=== PATIENT | male | born 1940 | race Caucasian/White ===

== ENCOUNTER 2023-07-15 14:03 | Outpatient (RCR) | payer MEDICARE, OTHER, SELFPAY | END 2023-07-16 09:40 | disposition home or self-care (01) | LOC: RPT 14:03 | PROVIDERS: ATTENDING PHYSICIAN Specialist; PRIMARYCARE PHYSICIAN Internal Medicine | DX: R39.15 Urgency of urination (principal); N39.41 Urge incontinence; Z73.6 Limitation of activities due to disability; R27.8 Other lack of coordination; M62.81 Muscle weakness (generalized) | CPT/HCPCS: 97530 ==

== ENCOUNTER → 2023-09-04 07:25 | Outpatient (REF) | payer MEDICARE, OTHER, SELFPAY ==
[2023-09-04 08:04] LABS: % Basophils 0.5 % (0-2); % Eosinophils 3.2 % (0-6); % Immature Granulocytes 0.2 % (0-0.5); % Lymphocytes 29.8 % (20.5-51.1); % Monocytes 15.5 % (1.7-9.3); % Neutrophils 50.8 % (42.2-75.2); Absolute Eosinophils 0.2 10^3/uL (0-0.7); Absolute Lymphocytes 1.7 10^3/uL (1.2-3.4); Absolute Monocytes 0.9 10^3/uL (0.1-0.6); Absolute Neutrophils 2.8 10^3/uL (1.4-6.5); Hematocrit 43.2 % (39.0-52.0); Hemoglobin 14.2 g/dL (13.0-18.0); Mean Corp Hgb Conc. 32.9 g/dL (33.0-37.0); Mean Corpuscular Hgb 29.2 pg (27.0-31.0); Mean Corpuscular Volume 88.9 fL (80.0-94.0); Mean Platelet Volume 9.6 fL (7.4-10.4); Nucleated Red Blood Cells % 0 % (-); Platelet Count 174 10^3/uL (130-400); Red Blood Cell Count 4.86 10^6/uL (4.70-6.10); Red Cell Dist. Width 12.8 % (11.5-14.5); White Blood Cell Count 5.6 10^3/uL (4.8-10.8)
[2023-09-04 08:36] LABS: ALT (SGPT) 34 U/L (0-50); AST (SGOT) 42 U/L (17-59); Alkaline Phosphatase 69 U/L (38-126); Blood Urea Nitrogen 19 mg/dl (9-20); Calcium 8.7 mg/dl (8.4-10.2); Carbon Dioxide 31 mmol/L (22-30); Chloride 106 mmol/L (98-107); Glucose 106 mg/dl (70-99); Potassium 4.2 mmol/L (3.5-5.1); Sodium 139 mmol/L (135-145); Total Bilirubin 0.5 mg/dl (0.2-1.3); Total Protein 6.9 g/dl (6.3-8.2); eGFR > 60.00
[2023-09-04 08:52] LABS: Erythrocyte Sed Rate 9 mm/hour (0-20)
[2023-09-05 23:56] LABS: Gliadin Peptide (DGP) Ab, IgG <0.56 FLU (0.00-4.99)
[2023-09-07 02:03] LABS: Myeloperoxidase Antibody 0 AU/mL (0-19)
== END ==
LOC: REG 07:25
PROVIDERS: ATTENDING PHYSICIAN Hospitalist; FAMILY PHYSICIAN Internal Medicine
DX: H90.42 Sensorineural hearing loss, unilateral, left ear, with unrestricted hearing on the contralateral side (principal); I10 Essential (primary) hypertension; K90.0 Celiac disease
CPT/HCPCS: 36415; 80053; 83516; 85025; 85652; 86140; 86258

== ENCOUNTER → 2023-09-08 10:01 | Outpatient (REF) | payer MEDICARE, OTHER, SELFPAY | LOC: REG 10:01 | PROVIDERS: ATTENDING PHYSICIAN Hospitalist; FAMILY PHYSICIAN Internal Medicine | DX: H90.42 Sensorineural hearing loss, unilateral, left ear, with unrestricted hearing on the contralateral side (principal); I10 Essential (primary) hypertension; K90.0 Celiac disease | CPT/HCPCS: 81050 ==

== ENCOUNTER → 2023-11-12 20:09 | Outpatient (REF) | payer MEDICARE, OTHER, SELFPAY | LOC: MRI 20:09 | PROVIDERS: ATTENDING PHYSICIAN Otolaryngology; FAMILY PHYSICIAN Internal Medicine | DX: H90.3 Sensorineural hearing loss, bilateral (principal) | CPT/HCPCS: 70553; A9575 ==

== ENCOUNTER → 2024-04-07 16:33 | Outpatient (REF) | payer MEDICARE, OTHER, SELFPAY | LOC: PAVMRI 16:33 | PROVIDERS: ATTENDING PHYSICIAN Specialist; FAMILY PHYSICIAN Internal Medicine | DX: M25.552 Pain in left hip (principal); M54.16 Radiculopathy, lumbar region | CPT/HCPCS: 72148; 73721 ==

== ENCOUNTER → 2024-05-13 08:51 | Outpatient (REF) | payer MEDICARE, OTHER, SELFPAY ==
[2024-05-13 11:33] LABS: ALT (SGPT) 29 U/L (0-50); AST (SGOT) 38 U/L (17-59); Albumin 4.3 g/dl (3.5-5.0); Alkaline Phosphatase 63 U/L (38-126); Blood Urea Nitrogen 26 mg/dl (9-20); Calcium 9.2 mg/dl (8.4-10.2); Carbon Dioxide 27 mmol/L (22-30); Chloride 104 mmol/L (98-107); Glucose 96 mg/dl (70-99); HDL Cholesterol 64 mg/dl; LDL Cholesterol, Calculated 123 mg/dl; Potassium 5.1 mmol/L (3.5-5.1); Sodium 144 mmol/L (135-145); Total Bilirubin 0.7 mg/dl (0.2-1.3); Total Cholesterol 199 mg/dl (50-199); Total Protein 7.2 g/dl (6.3-8.2); Triglyceride 63 mg/dl (10-149); Very Low Density Lipoprotein 12 mg/dl (0-30); eGFR > 60.00
[2024-05-13 12:02] LABS: PSA, Total - Screen 1.92 ng/ml (0.0-4.0)
[2024-05-13 13:05] LABS: Glycohemoglobin (HgbA1c) 5.5 % (4.0-5.6)
== END ==
LOC: REG 08:51
PROVIDERS: ATTENDING PHYSICIAN Internal Medicine
DX: E78.00 Pure hypercholesterolemia, unspecified (principal); R73.9 Hyperglycemia, unspecified; Z12.5 Encounter for screening for malignant neoplasm of prostate
CPT/HCPCS: 36415; 80053; 80061; 83036; G0103

== ENCOUNTER 2024-08-27 10:49 | Emergency (ER) | payer MEDICARE, OTHER, SELFPAY ==
[2024-08-27] VITALS (10 sets, daily range): BP systolic 116–136; BP diastolic 64–84; PULSE 45–51; BMI 21.2
[2024-08-27 11:16] LABS: % Basophils 0.4 % (0-2); % Eosinophils 0.4 % (0-6); % Immature Granulocytes 0.2 % (0-0.5); % Lymphocytes 28.9 % (20.5-51.1); % Monocytes 11.4 % (1.7-9.3); % Neutrophils 58.7 % (42.2-75.2); Absolute Lymphocytes 2.4 10^3/uL (1.2-3.4); Absolute Neutrophils 4.9 10^3/uL (1.4-6.5); Hematocrit 41.9 % (39.0-52.0); Hemoglobin 13.8 g/dL (13.0-18.0); Mean Corp Hgb Conc. 32.9 g/dL (33.0-37.0); Mean Corpuscular Hgb 29.4 pg (27.0-31.0); Mean Corpuscular Volume 89.3 fL (80.0-94.0); Mean Platelet Volume 9.7 fL (7.4-10.4); Nucleated Red Blood Cells % 0 % (-); Platelet Count 179 10^3/uL (130-400); Red Blood Cell Count 4.69 10^6/uL (4.70-6.10); White Blood Cell Count 8.4 10^3/uL (4.8-10.8)
[2024-08-27 11:36] LABS: ALT (SGPT) 27 U/L (0-50); AST (SGOT) 36 U/L (17-59); Albumin 4.4 g/dl (3.5-5.0); Alkaline Phosphatase 59 U/L (38-126); Blood Urea Nitrogen 27 mg/dl (9-20); Calcium 8.9 mg/dl (8.4-10.2); Carbon Dioxide 24 mmol/L (22-30); Chloride 101 mmol/L (98-107); Estimated Creatinine Clearance 66 ml/min; Glucose 123 mg/dl (70-99); Potassium 4.3 mmol/L (3.5-5.1); Sodium 135 mmol/L (135-145); Total Bilirubin 0.9 mg/dl (0.2-1.3); Total Protein 6.8 g/dl (6.3-8.2); eGFR > 60.00
--- NOTE | 2024-08-27 12:15 | EDRN ---
the pt pressed the call mendez and this RN entered the pts room, the pt stated that he needed to use the bathroom, this RN unhooked the pt from the quality assurance monitor final, BP cuff, and Sp02 monitor, the pt was able to ambulate independently to the bathroom
and back to the stretcher with no c/o lightheadedness and no c/o dizziness, the pt was placed back on the quality assurance monitor final, BP cuff, and Sp02 monitor, the pt then stated to this RN, 'You know i am really just shocked and dissapointed with the care
here, i have just been ignored, and all i hear outside of my room is just talking and people walking by laughing having a good time at work and i just think its unbelievable', this RN apologized to the pt for the way that the pt felt however this RN
notified the pt that he has not been ignored and that his heart rate and vitals have been monitored and this RN notified the pt that this RN was awaiting for the provider Ed Lee ROSE to come back to the pts bedside, the pt also stated, 'I just feel
like nothing has been done to help me and i feel like i have been ignored i mean in a place like this i expect the utmost respect and professionalism', this RN assured the pt that this RN has treated the pt with respect and has been monitoring the
pt and this RN apologized for the pts frustration however this RN reinterated that no act of unprofessionalism was portrayed during his time in the ED, this RN asked the pt if he needed anything and the pt declined needing anything
[2024-08-27] MEDS: NSS 1000 IV (12:26)
--- NOTE | 2024-08-27 12:30 | EDRN ---
this RN entered the pts room to hang IVF Bolus that had been ordered by Charles ROSE and this RN updated the pt on the plan of care and notified the pt that IVF's were going to be hung and the pt stated that he verbally understood however the pt
stated, 'Yeah the fluids should have been hung hours ago, this is what i mean i have not been cared for here what so ever', this RN educated the pt that the provider was waiting for the pts labs to come back before IVF's were hung and this RN
educated the pt that per the orthostatic vital signs earlier and his stable vitals and lack of a c/o lightheaded or dizziness that IVF's were not immediately ordered due to the fact that the provider wanted the labs to come back first, the pt
verbally stated that he understood, this RN apologized again for the way that the pt felt and offered for the pt to speak with the charge nurse or the business unit manager and the pt declined, VS WNL, no s/s of distress, will continue to monitor the pt closely
--- NOTE | 2024-08-27 13:13 | EDRN ---
Charles ROSE currently at the pts bedside
--- NOTE | 2024-08-27 13:19 | EDRN ---
Charles ROSE provided the pt with an ER lunch box per the pts request
--- NOTE | 2024-08-27 13:38 | ED.GENMED ---
History of Present Illness
General
Chief Complaint: Fainting/Passed Out
Source: patient
Exam Limitations: none
Time Seen by Provider: 08/27/24 11:25
Nursing documentation reviewed up to this point in time: agreed with
History of Present Illness
History of Present Illness:
83-year-old male with remote history of atrial fibrillation status post ablation 7 years ago presenting to the emergency department today with concerns of an episode where he felt lightheaded was able to get to the ground before passing out. This
occurred immediately after urinating. EMS ended up coming to his residence where they did an EKG and thought he may have been in atrial fibrillation but it is unclear and there is no available rhythm strips proving this. Otherwise at this point is
some vague lightheadedness but no specific chest pain palpitations or additional symptoms otherwise.
Past History
Past History
ED Past Medical History: Arrthythmia
ED Past Surgical History: None
Social History
Tobacco: Non-smoker
Alcohol: None
Drug: None
Personal:
Living: with family
Employment: Employed (Marriage counselor)
Family History
Family History: Other (Noncontributory)
Review of Systems
Review of Systems
Allergies reviewed?: Yes
All Other Systems: ROS reviewed and negative except as documented in HPI and ROS
Phy Exam
Physical Exam
Physical Exam:
GENERAL: Alert , in no apparent distress
EYE: pupils equal and reactive
NECK: Supple, no significant adenopathy.
ENT: o/p clr, mmm.
CARDIAC: Regular rate and rhythm .
LUNGS: Clear breath sounds bilaterally, no acute respiratory distress, no wheezes/rales/rhonchi
ABDOMEN: Soft, without focal tenderness, no r/g, no cvat
NEUROLOGICAL: Alert and oriented, no focal neuro deficits
SKIN: Warm and dry, skin intact.
MUSCULOSKELETAL: No edema, well perfused.
PSYCH: Normal and appropriate interaction.
Course
Orders/Labs/Results
Orders:
Orders
08/27/24 10:52
Electrocardiogram (*1) Urgent
Reason for Study: Vertigo / Dizzy
08/27/24 10:53
EKG- Treatment ONCE
08/27/24 10:55
CMP [Comprehensive Metabolic Panel] Urgent
Complete Blood Count/With Diff Urgent
08/27/24 12:25
0.9% Sodium Chloride 1000 ml [Nss] 1,000 ml IV BOLUS
Abnormal Lab Results
08/27/24
10:55
RBC 4.69 L 10^6/uL
(4.70-6.10)
MCHC 32.9 L g/dL
(33.0-37.0)
Absolute Monos (auto) 1.0 H 10^3/uL
(0.1-0.6)
Monocytes % 11.4 H %
(1.7-9.3)
BUN 27 H mg/dl
(9-20)
Glucose 123 H mg/dl
(70-99)
08/27/24 10:55
08/27/24 10:55
Vital Signs
Initial and Last Documented VS:
Initial Vital Signs
Pulse Resp BP Pulse Ox
52 13 136/75 100
08/27/24 10:55 08/27/24 10:55 08/27/24 10:55 08/27/24 10:55
Last Documented Vital Signs
Temp Pulse Resp BP Pulse Ox
98.5 F 56 20 136/74 98
08/27/24 11:14 08/27/24 13:21 08/27/24 13:21 08/27/24 13:21 08/27/24 13:21
MDM/Problems Addressed
MDM/Problems Addressed:
83-year-old male presenting to the emergency department after presyncopal episode. Here vital signs are normal patient no distress EKG is normal. There was some concern of possible brief episode of A-fib though it is unclear and there is no
printout of this event. Labs here showing elevated BUN to creatinine ratio. He was given fluids to help with possible dehydration. Symptoms seem to improve while in the ER. Case was discussed with cardiology that saw him immediately after
discharge for Holter monitor. Otherwise he was able to ambulate here in no distress stable throughout ER stay.
*Critical Care Note
Total Time (30-74mins, 75-104mins- exclusive of procedures): Not Applicable
ED Attending Note
-
Portions of this chart may have been created with voice recognition software.� Occasional wrong word or��sound alike� substitutions may have occurred due to the inherent limitations of voice recognition software.
Discharge Plan
Departure
Patient Disposition: Home (Routine Discharge)
Date of Disposition: 08/27/24
Time of Disposition: 13:38
Patient with high blood pressure during this ER visit?: No
Condition: Good
Covid-19: Not Applicable
Discharge Problem:
Pre-syncope
Instructions: Syncope (Fainting) (DC)
Prescriptions:
No Action
No Current Medications
0
Referrals:
Juan Garcia I., DO [Family Provider] -
Activity Restrictions/Additional Instructions:
You came to the emergency department today after presyncopal episode. Here you had a reassuring assessment. Please follow-up with cardiology directly after your visit today for Holter monitor. Return for any worsening, new or concerning symptoms.
Interventions
Interventions:
*Risk Screen - Suicide Last Done: 08/27/24 11:14
*General Assessment Last Done: 08/27/24 11:14
*Neglect/Abuse Screening Last Done: 08/27/24 11:14
ED- Fall Risk Assessment Last Done: 08/27/24 11:14
*ED COVID-19 Vaccine History Last Done: 08/27/24 11:14
ED- Cardiac Assessment Last Done: 08/27/24 11:14
ED- Neurological Assessment Last Done: 08/27/24 11:14
Discharge Date and Time
Print Language: CROATIAN
== END 2024-08-27 13:57 | disposition home or self-care (01) ==
LOC: EMR 10:49
PROVIDERS: EMERGENCY PHYSICIAN Emergency Medicine; FAMILY PHYSICIAN Internal Medicine
DX: R55 Syncope and collapse (principal)
CPT/HCPCS: 99284; 96360; 80053; 85025; 93005

== ENCOUNTER → 2025-01-20 07:16 | Outpatient (REF) | payer MEDICARE, OTHER, SELFPAY | LOC: RAD 07:16 | PROVIDERS: ATTENDING PHYSICIAN Internal Medicine | DX: G45.9 Transient cerebral ischemic attack, unspecified (principal) | CPT/HCPCS: 93880 ==

== ENCOUNTER → 2025-01-25 11:46 | Outpatient (REF) | payer MEDICARE, OTHER, SELFPAY ==
[2025-01-25 12:34] LABS: ALT (SGPT) 38 U/L (0-50); AST (SGOT) 46 U/L (17-59); Albumin 4.3 g/dl (3.5-5.0); Alkaline Phosphatase 58 U/L (38-126); Blood Urea Nitrogen 24 mg/dl (9-20); Calcium 9.0 mg/dl (8.4-10.2); Carbon Dioxide 31 mmol/L (22-30); Chloride 99 mmol/L (98-107); Glucose 96 mg/dl (70-99); Potassium 4.1 mmol/L (3.5-5.1); Sodium 136 mmol/L (135-145); Total Protein 7.1 g/dl (6.3-8.2); eGFR > 60.00
[2025-01-25 13:01] LABS: Glycohemoglobin (HgbA1c) 5.8 % (4.0-5.6)
[2025-01-25 13:21] LABS: Vitamin B12 581 pg/ml (239-931)
== END ==
LOC: OLABPV 11:46
PROVIDERS: ATTENDING PHYSICIAN Internal Medicine
DX: R42 Dizziness and giddiness (principal); I48.0 Paroxysmal atrial fibrillation; R73.9 Hyperglycemia, unspecified; D51.9 Vitamin B12 deficiency anemia, unspecified
CPT/HCPCS: 36415; 80053; 82607; 83036; 84443

== ENCOUNTER → 2025-03-26 08:05 | Outpatient (REF) | payer MEDICARE, OTHER, SELFPAY | LOC: PAVMRI 08:05 | PROVIDERS: ATTENDING PHYSICIAN Specialist; FAMILY PHYSICIAN Internal Medicine | DX: R42 Dizziness and giddiness (principal) | CPT/HCPCS: 70544; 70547; 70551 ==

== ENCOUNTER → 2025-06-06 16:27 | Outpatient (REF) | payer MEDICARE, OTHER, SELFPAY | LOC: OLABPV 16:27 | PROVIDERS: ATTENDING PHYSICIAN Nurse Practitioner Adult Health | DX: J02.9 Acute pharyngitis, unspecified (principal) | CPT/HCPCS: 87070 ==